=== PATIENT | female | born 2000 | race Caucasian/White ===

== ENCOUNTER 2021-01-07 21:43 | Emergency (ER) | payer OTHER ==
[~2021-01-07] VITALS: Ht 165.1 cm; Wt 91.9 kg
[2021-01-07] MEDS ORDERED: METFORMIN HCL500 M2 PO (21:59)
== END 2021-01-07 22:56 | disposition home or self-care (01) ==
LOC: ED 21:43
DX: S60.222A Contusion of left hand, initial encounter (principal); S60.212A Contusion of left wrist, initial encounter; V49.40XA Driver injured in collision with unspecified motor vehicles in traffic accident, initial encounter; J45.909 Unspecified asthma, uncomplicated; K21.9 Gastro-esophageal reflux disease without esophagitis; Z91.09 Other allergy status, other than to drugs and biological substances; Z79.84 Long term (current) use of oral hypoglycemic drugs
CPT/HCPCS: 73110; 73130; 99283-25

== ENCOUNTER 2022-04-26 19:39 | Emergency (ER) | payer OTHER ==
[~2022-04-26] VITALS: Ht 165.1 cm; Wt 93.0 kg
[~2022-04-26 19:39] MED LIST: METFORMIN HCL500 M2 PO
== END 2022-04-26 22:03 | disposition home or self-care (01) ==
LOC: ED 19:39
DX: S29.012A Strain of muscle and tendon of back wall of thorax, initial encounter (principal); J45.909 Unspecified asthma, uncomplicated; Z91.048 Other nonmedicinal substance allergy status; X58.XXXA Exposure to other specified factors, initial encounter
CPT/HCPCS: 36415; 74176; 80053; 81003; 83690; 84703; 85025; 96361; 96374; 96375; 99284-25; J1885; J2405; J7121

== ENCOUNTER 2023-02-01 17:21 | Emergency (ER) | payer BC, OTHER ==
[~2023-02-01] VITALS: Ht 165.1 cm; Wt 100.0 kg
[2023-02-01 19:37] LABS: BASOPHILS 0.2 % (0-2); EOSINOPHILS 1.5 % (0-6); HEMATOCRIT 42.4 % (35.0-50.0); HEMOGLOBIN 14.1 g/dL (12.0-18.0); LYMPHOCYTES 19.9 % (24-44); MCHC 33.1 g/dl (30-36); MCV 90.4 fl (81-99); MONOCYTES 6.4 % (0-12); PLATELET COUNT 410 K/uL (140-440); RBC 4.69 M/ul (4.3-5.7)
[2023-02-01 19:50] LABS: BILIRUBIN, URINE NEGATIVE (negative); BLOOD/HGB, URINE NEGATIVE (Negative); KETONE, URINE NEGATIVE (Negative); LEUK ESTERASE, URINE NEGATIVE (negative); NITRITE, URINE NEGATIVE (negative); PH, URINE 8.5 (5-7)
[2023-02-01 19:55] LABS: ALBUMIN 4.1 g/dL (3.4-5.0); ALBUMIN/GLOBULIN RATIO 1.11 (1.1-2.4); BILIRUBIN, TOTAL 0.5 ng/dL (0.2-1.0); BUN/CREATININE RATIO 19.71 (6.0-28.6); CALCIUM 8.6 mg/dL (8.5-10.1); CREATININE, SERUM 0.71 mg/dL (0.55-1.02); PROTEIN, TOTAL 7.8 g/dL (6.4-8.2)
[2023-02-01] MEDS ORDERED: REGLAN10 MG PO (22:38)
[2023-02-01] MEDS ORDERED: PROTONIX40 MG PO (22:38)
[2023-02-01 22:53] VITALS: BP 130/84
== END 2023-02-01 22:54 | disposition home or self-care (01) ==
LOC: ED 17:21
PROVIDERS: Family Medicine
DX: K29.70 Gastritis, unspecified, without bleeding (principal); Z91.09 Other allergy status, other than to drugs and biological substances
CPT/HCPCS: 36415; 74177; 80053; 81003; 83690; 84703; 85025; 96360; 96361; 99284-25; J7030; Q9967